=== PATIENT | female | born 2000 | race Caucasian/White ===

== ENCOUNTER 2018-09-05 18:49 | Emergency (ER) | payer MEDICAID ==
[~2018-09-05] VITALS: Ht 165.1 cm; Wt 56.2 kg
--- NOTE | 2018-09-05 19:05 | NUR ---
DR. ALVARENGA AT BEDSIDE FOR MSE.
[2018-09-05] MEDS ORDERED: CEphaleXIN 500 MG CAPSULE ONE (19:42)
[2018-09-05] MEDS ORDERED: CEphaleXIN 500 MG CAPSULE PO ONE (19:45)
[2018-09-05 19:46] VITALS: BP 101/60
--- NOTE | 2018-09-05 19:46 | NUR ---
Patient discharged to home in stable conditon. Written and verbal after care instructions given. Patient verbalizes understanding of instructions.
== END 2018-09-05 19:47 | disposition home or self-care (01) ==
LOC: ER 18:49
DX: S93.402A Sprain of unspecified ligament of left ankle, initial encounter (principal); L01.00 Impetigo, unspecified; X50.1XXA Overexertion from prolonged static or awkward postures, initial encounter; Y93.89 Activity, other specified; Y92.89 Other specified places as the place of occurrence of the external cause; Y99.8 Other external cause status
CPT/HCPCS: 73610; A4663

== ENCOUNTER 2021-01-09 19:29 | Emergency (ER) | payer MEDICAID ==
[~2021-01-09] VITALS: Ht 165.1 cm; Wt 57.6 kg
--- NOTE | 2021-01-09 20:08 | NUR ---
Pt provided urine sample, sent to lab.
[2021-01-09] MEDS ORDERED: HYDROMORPHONE 1 MG/1 ML DISP.SYRIN IV ONE (20:15)
[2021-01-09] MEDS ORDERED: ONDANSETRON 4 MG/2 ML VIAL IV ONE (20:15)
[2021-01-09] MEDS ORDERED: HYDROMORPHONE 1 MG/1 ML DISP.SYRIN ONE (20:50)
[2021-01-09] MEDS ORDERED: ONDANSETRON 4 MG/2 ML VIAL ONE (20:50)
[2021-01-09 21:00] LABS: *BILIRUBIN,URIN NEGATIVE (NEGATIVE); *BLOOD, URINE NEGATIVE (NEGATIVE); *CLARITY,URINE CLEAR (CLEAR); *COLOR,URINE YELLOW (YELLOW); *KETONES,URINE NEGATIVE (NEGATIVE); *UROBILINOGEN,URINE 0.2 E.U./dl (NORMAL); LEUKOCYTE ESTERASE ,URINE NEGATIVE (NEGATIVE); NITRITE, URINE NEGATIVE (NEGATIVE); PH,URINE 8.5 (5.0-8.0); UGLUCOSE NEGATIVE (NEGATIVE)
[2021-01-09 21:01] LABS: *URINE HCG, QUAL NEGATIVE (NEGATIVE)
[2021-01-09 21:11] LABS: CREATININE 0.7 mg/dL (0.6-1.3); POTASSIUM 4.1 mmol/L (3.5-5.1)
[2021-01-09 21:17] LABS: BILIRUBIN,DIRECT 0.2 mg/dL (0.0-0.2); BILIRUBIN,TOTAL 0.8 mg/dL (0.2-1.0); TOTAL PROTEIN, SERUM 7.8 g/dL (6.4-8.2)
[2021-01-09 21:19] LABS: HEMATOCRIT 37.2 % (31.2-41.9); MEAN CORPUSCULAR VOLUME 87.8 fL (75.5-95.3); PLATELET COUNT (AUTO) 281 K/uL (179-408)
[2021-01-09] MEDS ORDERED: IV NORMAL SALINE 250 ML IV ONE (21:25)
[2021-01-09] MEDS ORDERED: IOHEXOL 300MG/ML 100 ML INFUS..BTL ONE (21:25)
[2021-01-09] MEDS ORDERED: SWABABLE VALVE TRANSFER SET EA MC ONE (21:25)
--- NOTE | 2021-01-09 21:40 | NUR ---
Pt taken to CT
[2021-01-09] MEDS ORDERED: HYDR-4209 PO (23:00)
[2021-01-09] MEDS ORDERED: ONDA4TAB5 PO (23:00)
[2021-01-09 23:34] VITALS: BP 102/63
--- NOTE | 2021-01-09 23:34 | NUR ---
Patient discharged to home in stable condition. Written and verbal after care instructions given. Patient verbalizes understanding of instructions. Stressed follow up or return to ER for worsening s/s.
== END 2021-01-09 23:36 | disposition home or self-care (01) ==
LOC: ER 19:50
DX: R10.33 Periumbilical pain (principal); R11.0 Nausea; N83.202 Unspecified ovarian cyst, left side
CPT/HCPCS: 36415; 74177; 76705; 80048; 80076; 81003; 83690; 84703; 85025; 96374; 96375; 99285; J1170; J2405; Q9967; A4663; J7050